=== PATIENT | female | born 1990 | race Caucasian/White ===

== ENCOUNTER 2017-06-30 08:09 | Inpatient (IN) | payer OTHER ==
[2017-06-30] VITALS (41 sets, daily range): BP systolic 93–132; BP diastolic 35–89; PULSE 63–164; RESP 16–20; TEMP 98.1–101.5
--- NOTE | 2017-06-30 08:35 | HHI.HP ---
HPI Chief Complaint Contraction pain Date Seen: Jun 30, 2017 Travel History International Travel<30 Days: No Contact w/Intl Traveler<30Days: No Known Affected Area: No History of Present Illness HPI Patient is 27-year-old white female at 39 a half weeks presents planning of contractions increasing in intensity over the last 8-12 hours. Denies bleeding or rupture the membranes. heart rate tracing is reactive and she is joshua every 2 minutes. Para: 0 : 2 History Social History Alcohol Use: No Tobacco Use: No Substance Abuse: No Review of Systems General / Constitutional: No: Fever, Weight Gain, Chills, Other Eyes: No: Diploplia, Blurred Vision, Visual changes, Pain, Photophobia HENT: No: Headaches, Vertigo, Lightheadedness Cardiovascular: No: Irregular Rhythm, Chest Pain or Discomfort, Palpitations, Tachycardia, Syncope, Varicosities, Edema, Cyanosis Respiratory: No: Cough, Short of Breath, Other Gastrointestinal: Abdominal Pain, No: Nausea, Vomiting, Diarrhea Genitourinary: No: Decreased Urinary Output, Oliguria Musculoskeletal: No: Limited ROM, Weakness, Cramping, Edema, Pain Skin: No Rash, No Itching, No Dryness, No Lumps, No Change in Pigmentation, No Change in Nails, No Alopecia, No Lesions Neurologic: No: Weakness, Dizziness, Syncope, Focal Abnormalities, Coordination Problem, Headache, Slurred Speech, Seizures Psychiatric: No: Depression, Suicidal Ideations, Homicidal Ideation Endocrine: No: Heat Intolerance, Cold Intolerance, Polydipsia, Polyuria, Other Physical Exam Narrative GENERAL: Well-nourished, well-developed patient. SKIN: Warm and dry. HEAD: Normocephalic and atraumatic. EYES: No scleral icterus. No injection or drainage. ENT: No nasal drainage noted. Mucous membranes pink. Airway patent. NECK: Supple, trachea midline. No JVD. CARDIOVASCULAR: Regular rate and rhythm without murmurs, gallops, or rubs. RESPIRATORY: Breath sounds equal bilaterally. No accessory muscle use. BREASTS: Bilateral exam showed no masses , no retractions, no nipple discharge. ABDOMEN/GI: Abdomen soft, non-tender, bowel sounds present, no rebound, no guarding Gravid to [39-] weeks size Fundal Height: [39-] GENITOURINARY: External Genitalia: intact and normal in appearance BUS glands: [-] Cervix: [-] Dilatation: [4-] Effacement: [90-] Station: [-1] Presentation: [vtx-] Membranes: [intact ] Uterine Contractions: [q 2 min-] FHT's: Category: [-1] Baseline: [-144] Reactive: [yes-] Variability: [-mod] Decels: [none-] EXTREMITIES: No cyanosis or edema. BACK: Nontender without obvious deformity. No CVA tenderness. NEUROLOGICAL: Awake and alert. Motor and sensory grossly within normal limits. Five out of 5 muscle strength in all muscle groups. Normal speech. Data Data Labs Patient relates that her GBS culture was negative Assessment/Plan Assessment and Plan Patient is a 27-year-old white female at 39 weeks who presents in active labor. Patient's cervix is 4 cm 90% -1 station with intact membranes. Contractions are regular on monitor. heart rate tracing is reactive. This patient is GBS is negative according to the patient. Patient sees Dr. Hector for care at [facility] will notify Dr. Hector patient's arrival Impression-active labor at 39 1/2 weeks Plan--admission to labor and delivery plan labor management augmentation as needed and anticipate vaginal delivery Chinedu Blake II, MD Jun 30, 2017 08:35
[2017-06-30] MEDS ORDERED: LACTATED RINGER'S 1000 ML INJ 1,000 ML IV PRN (08:36)
[2017-06-30] MEDS ORDERED: LACTATED RINGER'S 1000 ML INJ 1,000 ML IV SCH (08:36)
[2017-06-30] MEDS ORDERED: SODIUM CHLORID 0.9% 500 ML INJ 500 ML IV PRN (08:45)
[2017-06-30] MEDS ORDERED: LIDOCAINE HCL 1% 50 ML VIAL INFIL PRN (08:45)
[2017-06-30] MEDS ORDERED: OXYTOCIN 30 UNITS-500ML PREMIX 500 ML IV ONE (08:45)
[2017-06-30] MEDS ORDERED: MINERAL OIL 10 ML VIAL TOPICAL PRN (08:45)
[2017-06-30] MEDS ORDERED: LIDOCAINE HCL 1% 50 ML VIAL I-DERMAL PRN (08:45)
[2017-06-30] MEDS ORDERED: CITRIC ACID-SODIUM CITRATE LIQ 30 ML UDC PO SCH (08:45)
[2017-06-30] MEDS ORDERED: SODIUM CHLOR 0.9% 1000 ML INJ 1,000 ML IV PRN (08:56)
[2017-06-30 09:23] LABS: AUTOMATED NEUTROPHIL # 7.5 TH/MM3 (1.8-7.7); BASOPHIL % 0.3 % (0.0-2.0); EOSINOPHIL % 0.1 % (0.0-4.0); HEMATOCRIT 35.7 % (35.0-46.0); HEMO FLAGS DIFF FINAL; LYMPH % 20.2 % (9.0-44.0); LYMPHOCYTE # 2.1 TH/MM3 (1.0-4.8); MEAN CELL VOLUME 93.6 FL (80.0-100.0); MEAN CORPUSCULAR HEMOGLOBIN 31.4 PG (27.0-34.0); MEAN CORPUSCULAR HGB CONC 33.5 % (32.0-36.0); MONO % 8.4 % (0.0-8.0); PLATELET COUNT 213 TH/MM3 (150-450); RED BLOOD COUNT 3.81 MIL/MM3 (4.00-5.30); RED CELL DISTRIBUTION WIDTH 15.1 % (11.6-17.2); WHITE BLOOD COUNT 10.5 TH/MM3 (4.0-11.0)
[2017-06-30 09:33] LABS: BACTERIA, URINE MOD /hpf; BLOOD, URINE NEG (NEG); COMMENT (UR) CULTURE INDICATED; CULTURE IF INDICATED CULTURE INDICATED; GLUCOSE,URINE NEG (NEG); KETONE, URINE NEG (NEG); MUCUS URINE FEW /lpf (OCC); NITRITE,URINE NEG (NEG); PH, URINE 6.5 (5.0-8.5); SQUAMOUS EPITHELIAL CELL URINE 2 /hpf (0-5); URINE COLOR YELLOW (YELLW/STRAW)
[2017-06-30] MEDS ORDERED: ePHEDrine/NS 25 MG/5 ML SYR ONE (09:40)
[2017-06-30] MEDS ORDERED: fentaNYL 2MCG-BUPIV 0.125% INJ 100 ML ONE ×2 (09:40→16:17)
[2017-06-30] MEDS ORDERED: MEASLES, MUMPS, RUBELLA VACCINE 0.5 ML VIAL SQ ONE (16:00)
[2017-06-30] MEDS ORDERED: DIPHTH/TETANUS/ACEL PERTUSSIS (BOOSTER) 0.5 ML VIAL/PFS IM ONE (16:00)
[2017-06-30] MEDS ORDERED: diphenhydrAMINE HCL 50 MG/ML VIAL ONE (17:05)
[2017-06-30] MEDS ORDERED: DO NOT ADMINISTER ANTICOAGULANTS PRN (17:15)
[2017-06-30] MEDS ORDERED: NO SYSTEM NARCOTICS PRN (17:15)
[2017-06-30] MEDS ORDERED: fentaNYL 2MCG-BUPIV 0.125% 100 ML EPIDURAL SCH (17:15)
[2017-06-30] MEDS ORDERED: ePHEDrine/NS 25 MG/5 ML SYR IV PRN (17:15)
[2017-06-30] MEDS ORDERED: SODIUM CHLORIDE 0.9% FLUSH 10 ML FLUSH IV FLUSH PRN (18:45)
[2017-06-30] MEDS ORDERED: ONDANSETRON ODT 4 MG TAB PO PRN (18:45)
[2017-06-30] MEDS ORDERED: OXYTOCIN 30 UNITS-500ML PREMIX 500 ML IV SCH (18:45)
[2017-06-30] MEDS ORDERED: ALUMINUM/MAGNESIUM/SIMETH 30 ML CUP PO PRN (18:45)
[2017-06-30] MEDS ORDERED: BENZOCAINE 20% TOPICAL SPRAY 60 ML CAN TOPICAL PRN (18:45)
[2017-06-30] MEDS ORDERED: ZOLPIDEM TARTRATE 5 MG TAB PO PRN (18:45)
--- NOTE | 2017-06-30 18:45 | PD.OB.DELI ---
Anesthesia: Epidural Vaginal Delivery: Normal Presentation: Occiput posterior Nuchal Cord: None Delayed cord clamping (45 sec): Yes : Female One Minute : 6 Five Minute : 7 Placenta: Spontaneous delivery Laceration: Vaginal laceration, 2 deg Estimated blood loss: average or less than Additional Information mom's immediate temp 101.3 tachypneic and working hard. [employer]PRESENT[employer] called to assist. Cheri Light MD Jun 30, 2017 18:45
[2017-06-30] MEDS ORDERED: MEPERIDINE HCL 25 MG/ML VIAL IV PUSH ONE (19:15)
[2017-06-30] MEDS: IBUPROFEN 600 MG TAB PO PRN (19:36)
[2017-06-30] MEDS ORDERED: ACETAMINOPHEN/HYDROcodone 325 MG/5 MG TAB PO ONE (20:15)
[2017-06-30] MEDS: WITCH HAZEL 50%/GLYCERIN 12.5% 40 PAD JAR TOPICAL PRN (22:18)
[2017-06-30] MEDS: DOCUSATE SODIUM 50 MG/SENNA 8.6 MG TAB PO PRN (22:19)
[2017-07-01] MEDS: ACETAMINOPHEN 325 MG TAB PO PRN ×2 (04:50→17:43)
[2017-07-01] MEDS: IBUPROFEN 600 MG TAB PO PRN ×2 (04:51→17:43)
--- NOTE | 2017-07-01 05:20 | HHI.OB ---
Subjective Post Day: 1 Remarks Seen in NICU; doing well with minimal lochia no longer complaining of contractions in good spirits Objective Vitals/I&O Vital Signs Date Time Temp Pulse Resp B/P Pulse Ox O2 Delivery O2 Flow Rate FiO2 06/30/17 21:15 20 06/30/17 20:30 18 06/30/17 19:45 18 06/30/17 19:45 99.4 06/30/17 19:31 119/63 06/30/17 19:01 123 100/76 06/30/17 18:55 16 06/30/17 18:55 105 130/73 06/30/17 18:37 101.5 06/30/17 18:00 79 118/77 06/30/17 17:30 99 110/69 06/30/17 17:29 98.8 06/30/17 17:00 90 110/66 06/30/17 16:31 164 119/54 06/30/17 16:17 18 06/30/17 15:31 90 06/30/17 15:31 121/56 06/30/17 15:16 87 112/63 06/30/17 15:09 99.2 06/30/17 15:09 16 06/30/17 15:00 89 107/58 06/30/17 14:30 101 107/76 06/30/17 14:00 91 115/68 06/30/17 13:30 102 132/89 06/30/17 13:00 82 119/63 06/30/17 12:30 66 118/66 06/30/17 12:07 70 105/67 06/30/17 12:07 98.1 16 06/30/17 12:01 74 93/35 06/30/17 11:40 63 06/30/17 11:35 79 06/30/17 11:30 80 117/65 06/30/17 11:30 80 06/30/17 11:00 69 104/68 06/30/17 11:00 71 06/30/17 10:40 65 06/30/17 10:40 18 06/30/17 10:36 65 117/65 06/30/17 10:35 84 06/30/17 10:30 71 06/30/17 10:25 85 06/30/17 10:20 71 06/30/17 10:15 82 06/30/17 10:10 71 06/30/17 10:08 70 113/54 06/30/17 10:05 90 06/30/17 10:00 76 06/30/17 09:55 87 06/30/17 09:53 122/73 06/30/17 09:50 73 06/30/17 09:40 18 Medications and IVs Current Medications Medications (Trade) Dose Ordered Sig/Meek Route Start Time Stop Time Status Last Admin Miscellaneous Information No systemic narcotics to be given except... UNSCH PRN .XX 06/30/17 17:15 07/01/17 17:14 Miscellaneous Information DO NOT ADMINISTER ANY ANTICOAGUL... UNSCH PRN .XX 06/30/17 17:15 07/01/17 17:14 (NS Flush) 2 ml BID IV FLUSH 06/30/17 21:00 (NS Flush) 2 ml UNSCH PRN IV FLUSH 06/30/17 18:45 (Tylenol) 650 mg Q4H PRN PO 06/30/17 18:45 07/01/17 04:50 (Motrin) 600 mg Q6H PRN PO 06/30/17 18:45 07/01/17 04:51 (Americaine 20% Top Spr) 1 spray Q4H PRN TOPICAL 06/30/17 18:45 06/30/17 22:19 (Tucks Pads) 1 applic QID PRN TOPICAL 06/30/17 18:45 06/30/17 22:18 (Sherine-Colace) 2 tab Q12H PRN PO 06/30/17 18:45 06/30/17 22:19 (Ambien) 5 mg HS PRN PO 06/30/17 18:45 (Mag-Al Plus Susp Liq) 15 ml Q8H PRN PO 06/30/17 18:45 (Zofran Odt) 4 mg Q6H PRN PO 06/30/17 18:45 Assessment/Plan Assessment and Plan Normal post recovery after unremarkable delivery of 9 pound 8 ounce baby in NICU with TTN remove hep lock so can scrub easily for NICU Cheri Light MD Jul 01, 2017 05:20
[2017-07-01] MEDS: SODIUM CHLORIDE 0.9% FLUSH 10 ML FLUSH IV FLUSH SCH (08:02)
[2017-07-01 08:42] VITALS: BP 113/65; PULSE 67; RESP 16; TEMP 98.3
--- NOTE | 2017-07-01 09:01 | HHI.DCPOC ---
Discharge Care Plan Diagnosis: (1) (spontaneous vaginal delivery) Your Health Problems Are: Vaginal delivery Report Symptoms to Your Doctor -Temperature above 100.5 degrees -Redness, of incision or excessive or foul smelling drainage -Unusual pain or calf pain -Increased vaginal bleeding -Painful or difficulty urinating -Feelings of extreme sadness or anxiety after 2 weeks Goals to Promote Your Health * To prevent worsening of your condition and complications * To maintain your health at the optimal level Directions to Meet Your Goals Take your medications as prescribed Follow your dietary instruction Follow activity as directed Ensure plenty of rest for recovery Drink fluids for hydration Keep your appointments as scheduled Take your immunizations and boosters as scheduled If your symptoms worsen call your PCP, if no PCP go to Urgent Care Center or Emergency Room Smoking is Dangerous to Your Health. Avoid second hand smoke Call the 24-hour crisis hotline for domestic abuse at Charity Hector MD Jul 01, 2017 09:01
--- NOTE | 2017-07-01 09:01 | HHI.OB ---
Subjective Post Day: 1 Remarks s/p of 9#8oz female on 06/30/17 Objective Vitals/I&O Vital Signs Date Time Temp Pulse Resp B/P Pulse Ox O2 Delivery O2 Flow Rate FiO2 07/01/17 08:42 98.3 07/01/17 08:42 67 16 113/65 06/30/17 22:00 98.4 06/30/17 22:00 84 18 111/62 06/30/17 21:15 20 06/30/17 20:30 18 06/30/17 19:45 18 06/30/17 19:45 99.4 06/30/17 19:31 119/63 06/30/17 19:01 123 100/76 06/30/17 18:55 16 06/30/17 18:55 105 130/73 06/30/17 18:37 101.5 06/30/17 18:00 79 118/77 06/30/17 17:30 99 110/69 06/30/17 17:29 98.8 06/30/17 17:00 90 110/66 06/30/17 16:31 164 119/54 06/30/17 16:17 18 06/30/17 15:31 90 06/30/17 15:31 121/56 06/30/17 15:16 87 112/63 06/30/17 15:09 99.2 06/30/17 15:09 16 06/30/17 15:00 89 107/58 06/30/17 14:30 101 107/76 06/30/17 14:00 91 115/68 06/30/17 13:30 102 132/89 06/30/17 13:00 82 119/63 06/30/17 12:30 66 118/66 06/30/17 12:07 70 105/67 06/30/17 12:07 98.1 16 06/30/17 12:01 74 93/35 06/30/17 11:40 63 06/30/17 11:35 79 06/30/17 11:30 80 117/65 06/30/17 11:30 80 06/30/17 11:00 69 104/68 06/30/17 11:00 71 06/30/17 10:40 65 06/30/17 10:40 18 06/30/17 10:36 65 117/65 06/30/17 10:35 84 06/30/17 10:30 71 06/30/17 10:25 85 06/30/17 10:20 71 06/30/17 10:15 82 06/30/17 10:10 71 06/30/17 10:08 70 113/54 06/30/17 10:05 90 06/30/17 10:00 76 06/30/17 09:55 87 06/30/17 09:53 122/73 06/30/17 09:50 73 06/30/17 09:40 18 Objective Remarks NAD doing well CTA b/l no wheeze RRR no murmur fundus firm lochia light extremeties without c/c/e x 4 Medications and IVs Current Medications Medications (Trade) Dose Ordered Sig/Meek Route Start Time Stop Time Status Last Admin Miscellaneous Information No systemic narcotics to be given except... UNSCH PRN .XX 06/30/17 17:15 07/01/17 17:14 Miscellaneous Information DO NOT ADMINISTER ANY ANTICOAGUL... UNSCH PRN .XX 06/30/17 17:15 07/01/17 17:14 (NS Flush) 2 ml BID IV FLUSH 06/30/17 21:00 (NS Flush) 2 ml UNSCH PRN IV FLUSH 06/30/17 18:45 (Tylenol) 650 mg Q4H PRN PO 06/30/17 18:45 07/01/17 04:50 (Motrin) 600 mg Q6H PRN PO 06/30/17 18:45 07/01/17 04:51 (Americaine 20% Top Spr) 1 spray Q4H PRN TOPICAL 06/30/17 18:45 06/30/17 22:19 (Tucks Pads) 1 applic QID PRN TOPICAL 06/30/17 18:45 06/30/17 22:18 (Sherine-Colace) 2 tab Q12H PRN PO 06/30/17 18:45 06/30/17 22:19 (Ambien) 5 mg HS PRN PO 06/30/17 18:45 (Mag-Al Plus Susp Liq) 15 ml Q8H PRN PO 06/30/17 18:45 (Zofran Odt) 4 mg Q6H PRN PO 06/30/17 18:45 Assessment/Plan Problem List: (1) (spontaneous vaginal delivery) Assessment and Plan Normal post recovery after unremarkable delivery of 9 pound 8 ounce baby in NICU with TTN remove hep lock so can scrub easily for NICU Discharge Planning routine, tmrw Charity Hector MD Jul 01, 2017 09:01
[2017-07-01] MEDS ORDERED: SENN1TAB PO (09:02)
[2017-07-01] MEDS ORDERED: IBUP-232 PO (09:02)
[2017-07-01] MEDS: DOCUSATE SODIUM 50 MG/SENNA 8.6 MG TAB PO PRN (17:43)
[2017-07-01 19:33] VITALS: BP 120/73; PULSE 63; RESP 16; TEMP 98.2
--- NOTE | 2017-07-02 07:55 | HHI.OB ---
Subjective Post Day: 2 Remarks doing well nursing well baby with her and can home Objective Vitals/I&O Vital Signs Date Time Temp Pulse Resp B/P Pulse Ox O2 Delivery O2 Flow Rate FiO2 07/01/17 19:33 98.2 63 16 120/73 07/01/17 08:42 98.3 07/01/17 08:42 67 16 113/65 Objective Remarks fundus U +1 firm lochia minimal perineum not bruised Medications and IVs Current Medications Medications (Trade) Dose Ordered Sig/Meek Route Start Time Stop Time Status Last Admin (NS Flush) 2 ml BID IV FLUSH 06/30/17 21:00 (NS Flush) 2 ml UNSCH PRN IV FLUSH 06/30/17 18:45 (Tylenol) 650 mg Q4H PRN PO 06/30/17 18:45 07/01/17 17:43 (Motrin) 600 mg Q6H PRN PO 06/30/17 18:45 07/01/17 17:43 (Americaine 20% Top Spr) 1 spray Q4H PRN TOPICAL 06/30/17 18:45 06/30/17 22:19 (Tucks Pads) 1 applic QID PRN TOPICAL 06/30/17 18:45 06/30/17 22:18 (Sherine-Colace) 2 tab Q12H PRN PO 06/30/17 18:45 07/01/17 17:43 (Ambien) 5 mg HS PRN PO 06/30/17 18:45 (Mag-Al Plus Susp Liq) 15 ml Q8H PRN PO 06/30/17 18:45 (Zofran Odt) 4 mg Q6H PRN PO 06/30/17 18:45 Assessment/Plan Problem List: (1) (spontaneous vaginal delivery) Assessment and Plan Normal post recovery after unremarkable delivery of 9 pound 8 ounce infant mom and baby home counseled on when to call RTO 2-6 weeks Discharge Planning routine, tmrw Cheri Light MD Jul 02, 2017 07:55
--- NOTE | 2017-07-02 07:56 | HHI.DCPOC ---
Discharge Care Plan Report Symptoms to Your Doctor -Temperature above 100.5 degrees -Redness, of incision or excessive or foul smelling drainage -Unusual pain or calf pain -Increased vaginal bleeding -Painful or difficulty urinating -Feelings of extreme sadness or anxiety after 2 weeks Goals to Promote Your Health * To prevent worsening of your condition and complications * To maintain your health at the optimal level Directions to Meet Your Goals Take your medications as prescribed Follow your dietary instruction Follow activity as directed Ensure plenty of rest for recovery Drink fluids for hydration Keep your appointments as scheduled Take your immunizations and boosters as scheduled If your symptoms worsen call your PCP, if no PCP go to Urgent Care Center or Emergency Room Smoking is Dangerous to Your Health. Avoid second hand smoke Call the 24-hour crisis hotline for domestic abuse at Cheri Light MD Jul 02, 2017 07:56
[2017-07-02 08:47] VITALS: BP 113/64; PULSE 64; RESP 16; TEMP 98.2
[2017-07-02] MEDS: SODIUM CHLORIDE 0.9% FLUSH 10 ML FLUSH IV FLUSH SCH (09:00)
[2017-07-02] MEDS: WITCH HAZEL 50%/GLYCERIN 12.5% 40 PAD JAR TOPICAL PRN (09:01)
== END 2017-07-02 13:50 | disposition home or self-care (01) | DRG 775 ==
LOC: HOBED 08:09 → H2EA 08:45 → H1EA 21:19
PROVIDERS: ADMIT Obstetrics & Gynecology; ATTEND Obstetrics & Gynecology
PROC: 0KQM0ZZ Repair Perineum Muscle, Open Approach (ICD-10-PCS; principal; 2017-06-30)
PROC: 10E0XZZ Delivery of Products of Conception, External Approach (ICD-10-PCS; 2017-06-30)
PROC: 00HU33Z Insertion of Infusion Device into Spinal Canal, Percutaneous Approach (ICD-10-PCS; 2017-06-30)
PROC: 3E0R3CZ (ICD-10-PCS; 2017-06-30)
DX: O71.4 Obstetric high vaginal laceration alone (principal); Z37.0 Single live birth; Z3A.39 39 weeks gestation of pregnancy
CPT/HCPCS: 81001; 85025; 86850; 86900; 86901; 87086; 90715; J0690; J1200